=== PATIENT | female | born 1945 | race Hispanic/Latino ===

== ENCOUNTER 2017-11-17 14:12 | Inpatient (IN) | payer MEDICARE ==
[~2017-11-17] VITALS: Ht 154.9 cm; Wt 53.5 kg
[~2017-11-17 14:12] MED LIST: AMLODIPINE BESYL5 MG PO; ASPIRIN EC81 MG PO; CETIRIZINE HCL10 MG PO; FERROUS SULFAT325 MG PO; FOLIC ACID1 MG PO; LEVOTHYROXINE75 MCG PO; LOSARTAN POTAS100 MG PO; ULTRAM 50MG50 MG PO; ZOFRAN ODT4 MG SL
--- OUTSIDE RECORDS SUMMARY | 2017-11-17 14:14 | XMS REPORT ---
Author Author [facility] Address Unknown Phone Unavailable Care Team Providers Care Foreign Exchange Services Manager Name Role Phone HEATHER GONZALEZ Unavailable Unavailable Problems This patient has no known problems. Allergies, Adverse Reactions, Alerts This patient has no known allergies or adverse reactions. Medications This patient has no known medications. Results Test Description Test Time Test Comments Text Results Atomic Results Result Comments CT HIP RIGHT WO [place] [address] Patient Name: DOUGLAS GARRETT MR #: [id number] : 1945 Age/Sex: 72/F Req # : [id number] [facility] Physician: Ordered by: ALDEN LAM CLIP RIVETER Report #: [id number] Location: ER Room/Bed: Procedure: [id number] CT/CT HIP RIGHT WO Exam Date: 06/16/17 Exam Time: 1803 REPORT STATUS: Signed PROCEDURE: CT RIGHT HIP WITHOUT CONTRAST COMPARISON: X-ray done on the same date. INDICATIONS: FALL TECHNIQUE: Multidetector CT scanning of the right hip was performed without IV contrast. Coronal and sagittal multiplanar reformations were obtained. DLP: 191.15 mGy-cm FINDINGS: No acute fracture or dislocation of the right hip. Well-corticated ossified density adjacent to the greater trochanter is likely heterotopic ossification. Vascular calcifications. Partially imaged right SI joint vacuum disc phenomena. Small fat-containing right inguinal hernia. No right pelvic sidewall or inguinal lymphadenopathy. CONCLUSION: No acute fracture or dislocation of the right hip. Dictated by: Jag Greene M.D. on 06/16/2017 at 18:42 Electronically approved by: Jag Greene M.D. on 06/16/2017 at 18:42 Dictated By: JAG GREENE MD 41 Transcribed By: NELSON on 06/16/171841 COPY TO: ALDEN LAM CLIP RIVETER CT SHOULDER LEFT WO [place] [address] Patient Name: DOUGLAS GARRETT MR #: [id number] : 1945 Age/Sex: 72/F Req #: [id number] Adm Physician: Ordered by: ALDEN LAM CLIP RIVETER Report #: [id number] Location: ER Room/Bed: Procedure: [id number] CT/CT SHOULDER LEFT WO Exam Date: 06/16/17 Exam Time: 1803 REPORT STATUS: Signed PROCEDURE: CT LT SHOULDER WITHOUT CONTRAST COMPARISON: X-ray done on the same day. INDICATIONS: FALL TECHNIQUE: Multidetector CT scanning of the left shoulder was performed without IV contrast. Coronal and sagittal multiplanar reformations were obtained. DLP: 307.25 mGy-cm FINDINGS: No acute fracture or dislocation of the left shoulder. Posterior lateral humeral head deformity, likely representing Hill-Sachs deformity. Visualized left clavicle and left scapula are also unremarkable. Visualized left lung is unremarkable. No focal consolidation. CONCLUSION: No acute fracture or dislocation of the left shoulder. Dictated by: Jag Greene M.D. on 06/16/2017 at 18:48 Electronically approved by: Jag Greene M.D. on 06/16/2017 at 18:48 Dictated By: JAG GREENE MD 48 COPY TO: ALDEN LAM CLIP RIVETER CT CERVICAL SPINE WO [place] [address] Patient Name: DOUGLAS GARRETT MR #: [id number] : 1945 Age/Sex: 72/F Req #: [id number] Adm Physician: Ordered by: ALDEN LAM NP Report #: [id number] Location: ER Room/Bed: Procedure: [id number] CT/CT CERVICAL SPINE WO Exam Date: 06/16/17 Exam Time: 1515 REPORT STATUS: Signed EXAMINATION: Head and cervical spine CT without contrast. HISTORY: Status post fall 4 days ago, trauma in the back of the head, pain COMPARISON: None. TECHNIQUE: Multidetector axial images were obtained without contrast from the foramen magnum to the vertex and through the cervical spine. The images were reconstructed using brain and bone algorithms. Thin section brain images were reformatted into coronal and sagittal planes. HEAD CT FINDINGS: Skull: No lytic or blastic lesions. No fractures. Parenchyma: - Cortico-subcortical encephalomalacia in the left inferomedial occipital lobe ( lingual gyrus) with compensatory dilatation of the left occipital horn related to chronic infarct in the left DISTRIBUTION ENGINEERING TECHNOLOGIST distribution. -Smaller cortico- subcortical encephalomalacia in the left superior cerebellum, chronic infarct in the left superior cerebellar vascular distribution. -Severe confluent ventricular, jara radiata and centrum semiovale white matter hypodensities, most likely nonspecific diameter (ischemic changes. Small chronic lacunar infarct in the anterior limb of the right internal capsule.. - No mass, hemorrhage or CT evidence of acute vascular insult. Brain volume: Normal for age. Ventricles: No hydrocephalus or displacement. Arteries: No density suggestive of thrombus. Dural sinuses: No abnormal density. Extra-axial spaces: No abnormal density. Foramen magnum : No mass, Chiari malformation, or basilar invagination. Sella: No obvious mass. Paranasal/mastoid sinuses: Hypo pneumatization and sclerosis of the tip of the right mastoid air cells, likely sequela from remote inflammatory process. CERVICAL SPINE CT FINDINGS: Alignment: Normal alignment and lordosis. Soft tissues: Normal. Vertebrae: Normal height and density. No acute fracture, infection or neoplasm. Minimal likely chronic compression deformity of the C7 and T1 vertebral bodies. Intervertebral disk degenerative changes: C1-C2: Degenerative changes of the atlantodental joint and calcification of the atlantoaxial and craniocervical ligaments. C2-C3: Chondrocalcinosis of the intervertebral disc. Fusion of the posterior elements. No canal or foraminal stenosis. C3-C4: Advanced facet arthrosis with grade 1 anterolisthesis. Moderate bilateral foraminal stenoses. C4-C5: Symmetric disc bulge, prominent facet arthrosis. No significant stenosis. C5-C6: Disc osteophyte complex, bilateral uncovertebral facet arthrosis. Mild bilateral foraminal stenosis C6-C7: Disc osteophyte complex, bilateral uncovertebral and facet arthrosis. Mild to moderate foraminal stenosis. C7-T1: Prominent facet arthrosis with minimal anterolisthesis of mild foraminal narrowing. IMPRESSION: Head CT: 1. No acute traumatic intracranial abnormality, particularly no hemorrhage 2. Severe confluent white matter chronic microvascular ischemic changes. 3. 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 Cervical spine CT: 1. No acute fractures or dislocations. 2. Chronic degenerative changes as described. Note: Acute postraumatic spinal cord, vascular or ligamentous injuries cannot be excluded on the basis of the current examination. Signed by: Dr. Jeri Peguero M.D. on 06/16/2017 4 :02 PM Dictated By: JERI PEGUERO MD 1602 Transcribed By: RYNE on 06/16/17 160 COPY TO: ALDEN LAM NP CT BRAIN WO [place] [address] Patient Name: DOUGLAS GARRETT MR #: [id number] : 1945 Age/Sex: 72/F Req # : [id number] Adm Physician: Ordered by: ALDEN LAM NP Report #: [id number] Location: ER Room/Bed: Procedure: [id number] CT/CT BRAIN WO Exam Date: 06/16/17 Exam Time: 1515 REPORT STATUS: Signed EXAMINATION: Head and cervical spine CT without contrast. HISTORY: Status post fall 4 days ago, trauma in the back of the head, pain COMPARISON: None. TECHNIQUE: Multidetector axial images were obtained without contrast from the foramen magnum to the vertex and through the cervical spine. The images were reconstructed using brain and bone algorithms. Thin section brain images were reformatted into coronal and sagittal planes. HEAD CT FINDINGS: Skull: No lytic or blastic lesions. No fractures. Parenchyma: -Cortico-subcortical encephalomalacia in the left inferomedial occipital lobe (lingual gyrus) with compensatory dilatation of the left occipital horn related to chronic infarct in the left DISTRIBUTION ENGINEERING TECHNOLOGIST distribution. -Smaller cortico-subcortical encephalomalacia in the left superior cerebellum, chronic infarct in the left superior cerebellar vascular distribution. -Severe confluent ventricular, jara radiata and centrum semiovale white matter hypodensities, most likely nonspecific diameter (ischemic changes. Small chronic lacunar infarct in the anterior limb of the right internal capsule.. - No mass, hemorrhage or CT evidence of acute vascular insult. Brain volume: Normal for age. Ventricles: No hydrocephalus or displacement. Arteries: No density suggestive of thrombus. Dural sinuses: No abnormal density. Extra-axial spaces: No abnormal density. Foramen magnum: No mass, Chiari malformation, or basilar invagination. Sella: No obvious mass. Paranasal/mastoid sinuses: Hypo pneumatization and sclerosis of the tip of the right mastoid air cells, likely sequela from remote inflammatory process. CERVICAL SPINE CT FINDINGS: Alignment:Normal alignment and lordosis. Soft tissues: Normal. Vertebrae: Normal height and density. No acute fracture, infection or neoplasm. Minimal likely chronic compression deformity of the C7 and T1 vertebral bodies. Intervertebral disk degenerative changes: C1-C2: Degenerative changes of the atlantodental joint and calcification of the atlantoaxial and craniocervical ligaments. C2-C3: Chondrocalcinosis of the intervertebral disc. Fusion of the posterior elements. No canal or foraminal stenosis. C3-C4: Advanced facet arthrosis with grade 1 anterolisthesis. Moderate bilateral foraminal stenoses. C4-C5: Symmetric disc bulge, prominent facet arthrosis. No significant stenosis. C5-C6: Disc osteophyte complex, bilateral uncovertebral facet arthrosis. Mild bilateral foraminal stenosis C6-C7: Disc osteophyte complex, bilateral uncovertebral and facet arthrosis. Mild to moderate foraminal stenosis. C7-T1: Prominent facet arthrosis with minimal anterolisthesis of mild foraminal narrowing. IMPRESSION: Head CT: 1. No acute traumatic intracranial abnormality, particularly no hemorrhage 2. Severe confluent white matter chronic microvascular ischemic changes. 3. 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 Cervical spine CT: 1. No acute fractures or dislocations. 2. Chronic degenerative changes as described. Note: Acute postraumatic spinal cord, vascular or ligamentous injuries cannot be excluded on the basis of the current examination. Signed by: Dr. Jeri Peguero M.D. on 06/16/2017 4 :02 PM Dictated By: JERI PEGUERO MD 160 Transcribed By: RYNE on 06/16/17 160 COPY TO: ALDEN LAM CLIP RIVETER SHOULDER LEFT COMPLETE [place] [address] Patient Name: DOUGLAS GARRETT MR #: [id number] : 1945 Age/Sex: 72/F Req #: [id number] Adm Physician: Ordered by: ALDEN LAM CLIP RIVETER Report #: [id number] Location: ER Room/Bed: Procedure: [id number] DX/SHOULDER LEFT COMPLETE Exam Date: 06/16/17 Exam Time: 1420 REPORT STATUS: Signed SHOULDER LEFT COMPLETE - 2 views HISTORY: Pain COMPARISON: None available. FINDINGS: Bones: No acute displaced fracture. Osseous alignment is within normal limits. Adequate internal and external rotation. Joints: The joint spaces are well-maintained. Soft tissues: The soft tissues appear unremarkable. IMPRESSION: No acute fracture or dislocation of the left shoulder. Signed by: Dr. Jag Greene MD on 06/16/2017 2:51 PM Dictated By: JAG GREENE MD 50 Transcribed By: RYNE on 06/16/171450 COPY TO: ALDEN LAM CLIP RIVETER CHEST SINGLE (NOT PORTABLE) [place] [address] Patient Name: DOUGLAS GARRETT MR #: [id number] : 1945 Age/Sex: 72/F Req #: [id number] Adm Physician: Ordered by: ALDEN LAM CLIP RIVETER Report #: [id number] Location: ER Room/Bed: Procedure: [id number] DX/CHEST SINGLE (NOT PORTABLE) Exam Date: 06/16/17 Exam Time: 1420 REPORT STATUS: Signed EXAMINATION : CHEST SINGLE (NOT PORTABLE) INDICATION: Status post fall. COMPARISON: 04/23/2017 FINDINGS: AP view TUBES and LINES: None. LUNGS: Limited by shallow inspiration and mild rotation. Central vascular congestion, accentuated by low lung volumes. Mild right basilar subsegmental atelectasis. PLEURA: No significant pleural effusion or pneumothorax. HEART AND MEDIASTINUM: The cardiomediastinal silhouette is unremarkable. Aorta is calcified and tortuous. BONES AND SOFT TISSUES: No acute osseous lesion. Soft tissues are unremarkable. UPPER ABDOMEN: No free air under the diaphragm. IMPRESSION: Limited study due to shallow inspiration and mild rotation. Minimal right basilar subsegmental atelectasis. Signed by: Dr. Jag Greene MD on 06/16/2017 2:53 PM Dictated By: JAG GREENE MD 1451 Transcribed By: RYNE on 06/16/17 145 COPY TO: ALDEN LAM CLIP RIVETER HIP RIGHT ONE VW (+/- PELVIS) [place] [address] Patient Name: DOUGLAS GARRETT MR #: [id number] : 1945 Age/Sex: 72/F Req #: [id number] Adm Physician: Ordered by: HEATHER GONZALEZ MD Report #: [id number] Location: ER Room/Bed: Procedure: DX/HIP RIGHT ONE VW (+/- PELVIS) Exam Date: Exam Time: REPORT STATUS: Signed PROCEDURE: HIP RIGHT 2-3 VW (+/- PELVIS) COMPARISON: None. INDICATIONS: Not provided. FINDINGS: No evidence of acute displaced fracture or dislocation. There are degenerative changes of bilateral hips. Well- corticated ossified density adjacent to the right greater trochanter, less likely to represent an avulsed fracture fragment and may represent heterotopic ossification. Vascular calcifications. CONCLUSION: No acute fracture or dislocation of the right hip. Degenerative changes. Dictated by: Jag Greene M.D. on 06/16/2017 at 18:24 Electronically approved by: Jag Greene M.D. on 06/16/2017 at 18:24 Dictated By: JAG GREENE MD 23 Transcribed By: NELSON on 06/16/171823 COPY TO: HEATHER GONZALEZ MD HIP RIGHT 2-3 VW (+/- PELVIS) [place] [address] Patient Name: DOUGLAS GARRETT MR #: [id number] : 1945 Age/Sex: 72/F Req #: [id number] Adm Physician: Ordered by: HEATHER GONZALEZ MD Report #: [id number] Location: ER Room/Bed: Procedure: DX/HIP RIGHT 2-3 VW (+/- PELVIS) Exam Date: Exam Time: REPORT STATUS: Signed PROCEDURE: HIP RIGHT 2-3 VW (+/- PELVIS) COMPARISON: None. INDICATIONS: Not provided. FINDINGS: No evidence of acute displaced fracture or dislocation. There are degenerative changes of bilateral hips. Well- corticated ossified density adjacent to the right greater trochanter, less likely to represent an avulsed fracture fragment and may represent heterotopic ossification. Vascular calcifications. CONCLUSION: No acute fracture or dislocation of the right hip. Degenerative changes. Dictated by: Jag Greene M.D. on 06/16/2017 at 18:24 Electronically approved by: Jag Greene M.D. on 06/16/2017 at 18:24 Dictated By: JAG GREENE MD 23 Transcribed By: NELSON on 06/16/171823 COPY TO: HEATHER GONZALEZ MD
[2017-11-17] MEDS ORDERED: SODIUM CHLORIDE 0.9% 500ML 500 ML IV STA (15:41)
[2017-11-17] MEDS ORDERED: MORPHINE SULFATE 4 MG/ML SYR IV STA (15:41)
[2017-11-17] MEDS ORDERED: ONDANSETRON HCL INJ 2 MG/ML VIAL IV STA (15:41)
[2017-11-17] MEDS ORDERED: DIATRIZOATE MEGL/DIATRIZOA SOD 30 ML BTL PO ONE (15:55)
[2017-11-17] MEDS ORDERED: MORPHINE SULFATE 2 MG/ML SYR IV ONE (16:00)
--- NOTE | 2017-11-17 16:21 | Diagnostic Imaging Report ---
PROCEDURE: CHEST SINGLE (PORTABLE) COMPARISON: 06/16/17 INDICATIONS: DIARRHEA, ABDOMINAL PAIN FINDINGS: LUNGS: Trace amount of discoid atelectasis in the lung bases stable. No new findings in either lung. PLEURA: No effusions or pneumothorax. Eventration of the right diaphragm is stable. HEART \T\ MEDIASTINUM: The heart is within normal size-limits. Aortic ectasia and calcifications are stable. BONES \T\ SOFT TISSUES: No acute findings. CONCLUSION: No acute cardiopulmonary process. Dictated by: Yanira Figueredo M.D. on 11/17/2017 at 16:21 Electronically approved by: Yanira Figueredo M.D. on 11/17/2017 at 16:21
[2017-11-17 17:41] LABS: BASOPHILS % 0.4 % (0.0-1.0); EOSINOPHILS % 0.7 % (0.0-6.0); HEMATOCRIT 35.6 % (34.2-44.1); HEMOGLOBIN 11.6 g/dL (12.0-16.0); LYMPHOCYTES # (AUTO) 0.8 (1.0-3.2); LYMPHOCYTES % 15.4 % (18.0-39.1); MEAN CORPUSCULAR HEMOGLOBIN 29.7 pg (28-32); MEAN CORPUSCULAR HGB CONC 32.6 g/dL (31-35); MONOCYTES # (AUTO) 0.3 (0.2-0.8); MONOCYTES % 5.9 % (4.4-11.3); NEUTROPHILS # (AUTO) 4.2 (2.1-6.9); NEUTROPHILS % 77.2 % (38.7-80.0); PLATELET COUNT 126 x10e3/uL (140-360); RED BLOOD COUNT 3.91 x10e6/uL (3.6-5.1); RED CELL DISTRIBUTION WIDTH 15.7 % (11.7-14.4)
[2017-11-17 17:50] LABS: INR 1.07; PARTIAL THROMBOPLASTIN TIME 32.5 seconds (23.8-35.5); PROTHROMBIN TIME 13.1 seconds (11.9-14.5)
[2017-11-17 17:58] LABS: ALBUMIN 3.9 g/dL (3.5-5.0); ALBUMIN/GLOBULIN RATIO 0.9 (0.8-2.0); ANION GAP 16.5 mmol/L (8-16); CALCIUM 9.4 mg/dL (8.4-10.2); CREATININE, SERUM 1.13 mg/dL (0.57-1.11); POTASSIUM 3.5 mmol/L (3.5-5.1)
[2017-11-17] MEDS ORDERED: ACETAMINOPHEN 1000 MG/100 ML IV STA (18:03)
[2017-11-17 18:04] LABS: CREATINE KINASE MB 0.5 ng/mL (0-5.0)
--- NOTE | 2017-11-17 19:24 | Diagnostic Imaging Report ---
CT Abdomen And Pelvis with Intravenous Contrast INDICATION: Gallbladder mass, evaluate for small bowel obstruction, diverticulitis TECHNIQUE: Thin collimation axial images obtained from the diaphragm to the level of the pubic symphysis following the uneventful administration of 80 cc of low osmolar, nonionic intravenous contrast. RADIATION DOSE: Total DLP: 322.9 mGy*cm Estimated effective dose: (DLP x 0.015 x size factor) mSv CTDIvol has been reviewed. It is below the limits set by the Radiation Protocol Committee (RPC). COMPARISON: CT abdomen/pelvis 04/24/2017. MRCP 04/20/2017 ABDOMEN FINDINGS: Lung Bases: Stable eventration of the right diaphragm with atelectasis of the overlying lung. No pulmonary mass. Visualized portion of the mediastinum demonstrates atherosclerosis and calcifications of the aortic and mitral valves. Liver: Geographic hypoattenuation of the inferior aspect of the liver at the darcy hepatis without discrete mass. Portal vein and hepatic veins are widely patent. Gallbladder: Absent. Common bile duct measures 9 mm in diameter and tapers as it approaches the ampulla. There is enhancement of the mucosa of the common hepatic duct. This is similar to MRI. No intraluminal filling defect to suggest choledocholithiasis. Pancreas: Normal attenuation without mass or ductal dilatation. Spleen: Normal in size. No evidence of mass.. Adrenal Glands: No evidence for mass. Kidneys: Right: Normal enhancement. There are several subcentimeter cysts. No enhancing mass. No hydronephrosis. Left: Normal enhancement. No cortical mass. No hydronephrosis. Lymph Nodes: No lymphadenopathy. Aorta: Extensive calcifications. No aneurysmal dilatation. There are heavy calcifications of the renal artery origins. There is soft tissue edema in the darcy hepatis without discrete fluid collection. There is a trace amount of fluid inferior to the right lobe of the liver. PELVIS FINDINGS: Bowel: Small Bowel: Enteric contrast present throughout. No small bowel dilatation or mural thickening. No fluid in the small bowel mesentery. Large Bowel: Enteric contrast is present throughout. There is a 3 cm segment of circumferential luminal narrowing of the proximal sigmoid colon. No diverticula are appreciated.. Appendix: Normal appendix. Bladder: Under distended. No ureteral dilatation. The uterus is present with calcifications of the parametrial vessels. A calcification in the left ovary is stable. Lymph nodes: No enlarged mesenteric, pelvic, or inguinal lymph nodes. Peritoneal nodule in the right hemiabdomen measures 9 x 7 mm (by MRCP, 6 mm. No new peritoneal nodules have developed. Bones: Mild degenerative changes of the spine are stable. There is trace anterolisthesis of L4 on L5 without pars defect. No focal osseous lesions. Soft tissues: Left elbow hernia containing colon is no longer visualized. There are bilateral fat-containing indirect inguinal hernias. There are no bowel containing hernias. IMPRESSION: 1. 3 cm length of circumferential luminal narrowing of the proximal sigmoid colon. The differential is neoplastic process or spasm. Recommend further evaluation with colonoscopy. No large bowel inflammation to suggest diverticulitis. 2. No small bowel obstruction. 3. Geographic hypoattenuation of the liver and mild enhancement of the mucosa of the common hepatic duct. Please correlate for signs/symptoms of cholangitis and pancreatitis. Hypoattenuation of the liver may be secondary to fat deposition. Please correlate for history of any chemoradiation. 4. Enlarging but still nonspecific peritoneal nodule. Signed by: Dr. Yanira Figueredo MD on 11/17/2017 7:20 PM
[2017-11-17 20:38] LABS: BILIRUBIN,URINE NEGATIVE (NEGATIVE); COLOR,URINE YELLOW (YELLOW); KETONES,URINE NEGATIVE (NEGATIVE); LEUKOCYTE ESTERASE ,URINE TRACE (NEGATIVE); NITRITE,URINE NEGATIVE (NEGATIVE); URINE UROBILINOGEN 0.2 mg/dL (0.2 - 1)
[2017-11-17 20:42] LABS: CLARITY,URINE SL CLOUDY (CLEAR); PROTEIN,URINE DIPSTICK 2+ (NEGATIVE)
[2017-11-17] MEDS ORDERED: IOPAMIDOL 370 MG/ML 200 ML INFUS..BTL INJ ONE (20:42)
[2017-11-17] MEDS ORDERED: SODIUM CHLORIDE 0.9% 50ML 50 ML ONE (20:42)
[2017-11-17 20:47] LABS: BACTERIA,URINE FEW /HPF; EPITHELIAL CELLS,URINE FEW /LPF; MUCUS,URINE FEW (RARE)
[2017-11-17] MEDS ORDERED: SODIUM CHLORIDE 0.9% 500ML 500 ML ONE (20:48)
[2017-11-17] MEDS ORDERED: METRONIDAZOLE 500MG/NS 100ML 100 ML IV SCH (21:00)
[2017-11-17] MEDS: INSULIN REGULAR, HUMAN 100 UNIT/1 ML 3ML VIAL SQ SCH (21:00)
[2017-11-17] MEDS ORDERED: DEXTROSE 50% SYRINGE 50 ML IV PRN (21:00)
[2017-11-17] MEDS: MORPHINE SULFATE 2 MG/ML SYR IV PRN (21:41)
[2017-11-17] MEDS: ONDANSETRON HCL INJ 2 MG/ML VIAL IV PRN (21:41)
[2017-11-17 22:24] VITALS: BP 160/68
[2017-11-17 22:28] VITALS: BP 160/68
[2017-11-17] MEDS: LEVOFLOXACIN 500MG/D5W 100ML IV SCH (22:43)
[2017-11-17] MEDS: SODIUM CHLORIDE 0.9% 1000ML 1,000 ML IV SCH (22:43)
[2017-11-18] VITALS (9 sets, daily range): BP systolic 128–166; BP diastolic 62–90
[2017-11-18] MEDS: ONDANSETRON HCL INJ 2 MG/ML VIAL IV PRN (02:48)
[2017-11-18] MEDS: METRONIDAZOLE 500MG/NS 100ML 100 ML IV SCH ×4 (04:01→20:52)
[2017-11-18] MEDS: SODIUM CHLORIDE 0.9% 1000ML 1,000 ML IV SCH ×2 (04:56→12:59)
[2017-11-18 07:11] LABS: BASOPHILS % 0.3 % (0.0-1.0); EOSINOPHILS % 0.3 % (0.0-6.0); HEMATOCRIT 25.8 % (34.2-44.1); LYMPHOCYTES # (AUTO) 0.5 (1.0-3.2); LYMPHOCYTES % 14.5 % (18.0-39.1); MEAN CORPUSCULAR HEMOGLOBIN 29.7 pg (28-32); MEAN CORPUSCULAR HGB CONC 32.6 g/dL (31-35); MEAN CORPUSCULAR VOLUME 91.2 fL (81-99); MONOCYTES # (AUTO) 0.3 (0.2-0.8); MONOCYTES % 7.9 % (4.4-11.3); NEUTROPHILS # (AUTO) 2.5 (2.1-6.9); NEUTROPHILS % 76.7 % (38.7-80.0); RED BLOOD COUNT 2.83 x10e6/uL (3.6-5.1); RED CELL DISTRIBUTION WIDTH 15.3 % (11.7-14.4)
[2017-11-18 07:23] LABS: HEMOGLOBIN 8.4 g/dL (12.0-16.0); PLATELET COUNT 92 x10e3/uL (140-360)
[2017-11-18] MEDS: INSULIN REGULAR, HUMAN 100 UNIT/1 ML 3ML VIAL SQ SCH ×4 (07:30→20:42)
[2017-11-18 07:47] LABS: ALBUMIN 2.8 g/dL (3.5-5.0); ALBUMIN/GLOBULIN RATIO 0.9 (0.8-2.0); ANION GAP 12.8 mmol/L (8-16); CALCIUM 8.1 mg/dL (8.4-10.2); CREATININE, SERUM 1.36 mg/dL (0.57-1.11); POTASSIUM 3.8 mmol/L (3.5-5.1)
[2017-11-18 09:17] LABS: RBC MORPHOLOGY COMMENT NORMAL
[2017-11-18 09:18] LABS: PLATELET ESTIMATE ADEQUATE; PLATELET MORPHOLOGY COMMENT NORMAL
[2017-11-18] MEDS ORDERED: PEG (High)/E-LYTE SOLN 4,000 ML BTL PO NR (17:00)
[2017-11-18] MEDS ORDERED: ONDANSETRON HCL 4 MG ORAL DISINTEGRATING TAB SL PRN (17:45)
--- NOTE | 2017-11-18 17:59 | Consultation ---
DATE OF CONSULTATION: GASTROENTEROLOGY CONSULTATION Reason for consult: Abdominal pain and diarrhea, rectal pain and streaks of blood in stool for 2 weeks HISTORY OF PRESENT ILLNESS/CHIEF COMPLAINT: 72 years old very pleasant female got admitted through ER with 2 weeks history of bloody diarrhea and rectal pain. Stool often mixed with mucus as well. Patient has had a previous history of colonoscopy with Dr. Charlton about a year ago. That showed diverticulosis and mulitple polyps were removed. Patient's hemoglobin has dropped from an 11.6 to an 8.4 in the past few days. No hx of recent travel, drinking , eating any contaminated food. No recent exposure to antibiotics. No significant hematochezia witnessed while being in Hospital. CT was done and shows circumferential luminal narrowing of the colon, spasm versus neoplastic malignancy. REVIEW OF SYSTEMS: 12 point systems reviewed, symptoms limited to GI system at this time. PAST MEDICAL HISTORY: Patient has hypertension, diabetes mellitus, CHF, asthma , lupus, arthritis, and iron deficiency anemia. PAST SURGERIES: Include cholecystectomy and also hysterectomy as well as knee surgery. SOCIAL HISTORY: She is a former smoker, no alcohol use or drug use. FAMILY HISTORY: Has a history of hypertension in the family. PHYSICAL EXAMINATION APPEARANCE: Alert, oriented x3. Patient is in mild distress. EYES: Pupils equal, round and reactive to light. No conjunctival findings, scleral icterus or pale conjunctivae. ENT: Ears normal, nose normal, no nasal discharge. NECK: Normal inspection. Supple. No JVD, lymphadenopathy. HEART: Normal heart rate and rhythm. Pulses normal, rate normal, rhythm normal. RESPIRATORY: Chest nontender. No rales, rhonchi or wheezes. ABDOMEN: Soft. Tenderness in the left lower quadrant and lower abdomen. No guarding or rebound tenderness. Bowel sounds normal. No mass. BACK: No CVA tenderness. SKIN: No rash. Normal skin turgor. Normal skin color. No cyanosis. EXTREMITIES: Normal range of motion. No calf tenderness. No edema. No cyanosis. NEUROLOGIC: Alert and oriented x3. No change in mental status. No cranial nerve deficit. No weakness. LABS: Patient has a drop in hemoglobin from 11.6 to 8.4. She currently has a CMP with creatinine of 1.13, and CT is positive for 3-cm length of proximal sigmoid colon with circumferential thickening. ASSESSMENT 1. Anemia, rule out gastrointestinal bleed. 2. Abdominal pain left lower quadrant. 3. Bloody diarrhea with mucus. 4. Diverticulosis and polyps on previous colonoscopy. 5. Nausea, vomiting. PLAN 1. EGD and colonoscopy tomorrow in the morning. Bowel prep tonight. 2. Continue current care. 3. Monitor vital signs. 4. Monitor H\T\H, transfuse if less than 7. Thank you for consulting us. We will follow. Dictated by: Sofi Reilly PA-C Job#: [id number] EV MTDD
--- NOTE | 2017-11-18 18:11 | History and Physical ---
PRIMARY CARE PHYSICIAN: Dr. Jayme Tinajero. GENETIC ENGINEER: Dr. Franck Jacob. CHIEF COMPLAINT: Hematochezia/rectal bleed. Abdominal pain with sigmoid colon infection. Nausea and vomiting, dehydration, and acute blood loss anemia. HISTORY OF PRESENT ILLNESS: A 72-year-old female with an acute abdominal pain left lower quadrant, abdominal pain associated with fever, diarrhea, and also with hematochezia. Patient has rectal bleed. CT scan showed 3-cm length of circumferential luminal narrowing of the proximal sigmoid colon. The patient is pending for endoscopy. In the meantime, the patient is placed on IV antibiotics. The patient is otherwise stable. Her hemoglobin dropped down to 8.4. The patient is stable at this time. PAST MEDICAL HISTORY: Hypertension, diabetes type 2, allergic rhinitis, hypothyroidism, osteoarthritis. PAST SURGICAL HISTORY: Cholecystectomy. SOCIAL HISTORY: Patient does not smoke or use alcohol. No recreational drug use. ALLERGIES: NO KNOWN ALLERGY. HOME MEDICATIONS: Norvasc, aspirin, Zyrtec, ferrous sulfate, folic acid, levothyroxine, losartan, Zofran and tramadol. REVIEW OF SYSTEMS: Hematochezia. Rectal bleed as above. Abdominal pain. Nausea and vomiting and fever. PHYSICAL EXAMINATION: VITAL SIGNS: T-max was 100.5. Blood pressure 190/101. Pulse rate is 101. Respirations 20. GENERAL: Patient is not in acute distress. She is awake. HEENT: Normocephalic, atraumatic, anicteric. NECK: Supple grossly. PULMONARY: Diminished breath sounds. CARDIOVASCULAR: Tachycardia. ABDOMEN: Soft. Tenderness lower quadrant area without any rebound or guarding. EXTREMITIES: No gross cyanosis or edema. NEUROLOGIC: No focal deficit. LABORATORY: WBC is 5.4. Hemoglobin 11.6 down to 8.4. Hematocrit 35.6 down to 25.8. Platelet is 126 down to 92. Coagulation unremarkable. Chemistry: Sodium 138, potassium 3.5, chloride 101, bicarb 24, BUN is 21, creatinine 1.1, glucose is 115. IMAGING: CT scan of abdomen and pelvis showed that the patient has a 3-cm length of circumferential luminal narrowing of the proximal sigmoid colon. Differential diagnosis including neoplastic versus abscess. IMPRESSION: 1. Sigmoid colon colitis versus abscess versus stricture versus mass. 2. Hematochezia. 3. Acute blood loss anemia. 4. Dehydration. PLAN: Continue with IV fluid. IV antibiotics. Prep the patient for endoscopy. Insulin sliding-scale coverage. Will monitor the patient closely and adjust her medications. Job#: [id number] EV cc:JAYME TINAJERO MD
[2017-11-18] MEDS: LEVOFLOXACIN 500MG/D5W 100ML IV SCH (19:42)
[2017-11-19] VITALS (7 sets, daily range): BP systolic 102–174; BP diastolic 58–74
[2017-11-19] MEDS: SODIUM CHLORIDE 0.9% 1000ML 1,000 ML IV SCH (04:05)
[2017-11-19] MEDS: METRONIDAZOLE 500MG/NS 100ML 100 ML IV SCH ×3 (04:05→22:25)
[2017-11-19 06:05] LABS: BASOPHILS % 0.5 % (0.0-1.0); EOSINOPHILS % 1.4 % (0.0-6.0); HEMATOCRIT 26.2 % (34.2-44.1); HEMOGLOBIN 8.5 g/dL (12.0-16.0); LYMPHOCYTES # (AUTO) 0.5 (1.0-3.2); LYMPHOCYTES % 22.2 % (18.0-39.1); MEAN CORPUSCULAR HEMOGLOBIN 29.4 pg (28-32); MEAN CORPUSCULAR HGB CONC 32.4 g/dL (31-35); MEAN CORPUSCULAR VOLUME 90.7 fL (81-99); MONOCYTES # (AUTO) 0.2 (0.2-0.8); MONOCYTES % 10.4 % (4.4-11.3); NEUTROPHILS # (AUTO) 1.4 (2.1-6.9); PLATELET COUNT 93 x10e3/uL (140-360); RED BLOOD COUNT 2.89 x10e6/uL (3.6-5.1); RED CELL DISTRIBUTION WIDTH 15.5 % (11.7-14.4)
[2017-11-19 06:34] LABS: ANION GAP 12.4 mmol/L (8-16); CALCIUM 8.2 mg/dL (8.4-10.2); CREATININE, SERUM 1.04 mg/dL (0.57-1.11); POTASSIUM 3.4 mmol/L (3.5-5.1)
[2017-11-19] MEDS: INSULIN REGULAR, HUMAN 100 UNIT/1 ML 3ML VIAL SQ SCH ×4 (07:30→21:00)
[2017-11-19 09:13] LABS: WBC,FECAL (FECAL LACTOFERRIN) POSITIVE (NEGATIVE)
[2017-11-19] MEDS: AMLODIPINE BESYLATE 5 MG TAB PO SCH (11:11)
[2017-11-19] MEDS: LEVOTHYROXINE SODIUM 75 MCG TAB PO SCH (11:11)
[2017-11-19] MEDS: FOLIC ACID 1 MG TAB PO SCH (11:11)
[2017-11-19] MEDS: LOSARTAN POTASSIUM 100 MG TAB PO SCH (11:11)
[2017-11-19] MEDS ORDERED: ONDANSETRON HCL 4 MG ORAL DISINTEGRATING TAB PO PRN (11:15)
[2017-11-19 13:04] LABS: C DIFFICILE TOXIN A&B AMP PROB NEGATIVE (NEGATIVE)
[2017-11-19] MEDS: SOD CHL 0.45%/POT CHL 20MEQ 1,000 ML IV SCH (13:54)
[2017-11-19] MEDS ORDERED: MIDAZOLAM HCL 2 MG/2 ML VIAL ONE (14:50)
[2017-11-19] MEDS ORDERED: FENTANYL CITRATE/PF 100MCG/2 ML INJ ONE (14:50)
[2017-11-19] MEDS: LEVOFLOXACIN 500MG/D5W 100ML IV SCH (20:55)
[2017-11-20] VITALS: BP 140/61
[2017-11-20] MEDS: MORPHINE SULFATE 2 MG/ML SYR IV PRN
[2017-11-20 04:00] VITALS: BP 163/74
[2017-11-20] MEDS: SOD CHL 0.45%/POT CHL 20MEQ 1,000 ML IV SCH (05:26)
[2017-11-20 06:08] LABS: BASOPHILS % 0.2 % (0.0-1.0); EOSINOPHILS % 0.5 % (0.0-6.0); HEMOGLOBIN 8.8 g/dL (12.0-16.0); LYMPHOCYTES # (AUTO) 0.5 (1.0-3.2); LYMPHOCYTES % 11.7 % (18.0-39.1); MEAN CORPUSCULAR HEMOGLOBIN 29.4 pg (28-32); MEAN CORPUSCULAR HGB CONC 32.6 g/dL (31-35); MEAN CORPUSCULAR VOLUME 90.3 fL (81-99); MONOCYTES # (AUTO) 0.4 (0.2-0.8); NEUTROPHILS # (AUTO) 3.2 (2.1-6.9); NEUTROPHILS % 76.9 % (38.7-80.0); PLATELET COUNT 69 x10e3/uL (140-360); RED BLOOD COUNT 2.99 x10e6/uL (3.6-5.1); RED CELL DISTRIBUTION WIDTH 15.4 % (11.7-14.4)
[2017-11-20] MEDS: METRONIDAZOLE 500MG/NS 100ML 100 ML IV SCH ×2 (06:22→15:17)
[2017-11-20 06:35] LABS: ANION GAP 13.7 mmol/L (8-16); BLOOD UREA NITROGEN 8 mg/dL (7-26); BUN/CREATININE RATIO 10 (6-25); CARBON DIOXIDE 21 mmol/L (22-29); CHLORIDE 107 mmol/L (98-107); CREATININE, SERUM 0.81 mg/dL (0.57-1.11); EST GLOMERULAR FILTRATION RATE > 60 ML/MIN (60-); GLUCOSE 98 mg/dL (74-118); POTASSIUM 3.7 mmol/L (3.5-5.1); SODIUM 138 mmol/L (136-145)
[2017-11-20] MEDS: INSULIN REGULAR, HUMAN 100 UNIT/1 ML 3ML VIAL SQ SCH ×4 (07:30→20:15)
[2017-11-20 08:00] VITALS: BP 157/70
[2017-11-20] MEDS: FOLIC ACID 1 MG TAB PO SCH (08:18)
[2017-11-20] MEDS: AMLODIPINE BESYLATE 5 MG TAB PO SCH (08:18)
[2017-11-20] MEDS: LOSARTAN POTASSIUM 100 MG TAB PO SCH (08:18)
[2017-11-20] MEDS: LEVOTHYROXINE SODIUM 75 MCG TAB PO SCH (11:30)
[2017-11-20 12:00] VITALS: BP 155/67
[2017-11-20 16:00] VITALS: BP 145/66
[2017-11-20] MEDS: LIDOCAINE 5% PATCH TP SCH (17:31)
[2017-11-20 20:00] VITALS: BP 134/63
--- NOTE | 2017-11-20 22:04 | Progress Note ---
DATE: November 20, 2017 SUBJECTIVE: Patient reports no abdominal pain. No bowel movement today. Nausea, vomiting, diarrhea has resolved. However, she is complaining of right middle back pain. REVIEW OF SYSTEMS: GENERAL: No fever or chills. CVS: No chest pain, palpitation. RESPIRATORY: No cough or expectoration. MEDICATIONS: 1. Lidocaine dermal patch. 2. Metronidazole 100 mg IV q.8h. 3. Levothyroxine 75 mcg daily. 4. Losartan 100 mg daily. 5. Folic acid 1 mg daily. 6. Amlodipine 5 mg daily. 7. Morphine sulfate 4 mg IV q.4h. as needed. 8. Levofloxacin 500 mg IV daily. 9. Zofran 4 mg IV q.4h. as needed. 10. Insulin regular per sliding scale. 11. Tramadol 50 mg q.6h. as needed. PHYSICAL EXAMINATION: VITAL SIGNS: Temperature 98.5, pulse 110, respiration 18, blood pressure 145/66, oxygen saturation 98% on room air. GENERAL: Not in any acute distress. HEENT: Moist mucous membranes. Anicteric sclerae. NECK: No neck or axillary adenopathy. CVS: S1 and S2 regular. LUNGS: Bilaterally grossly clear. ABDOMEN: Soft, nondistended, nontender. No palpable mass or hernia. Positive bowel sounds. EXTREMITIES: Warm. No leg edema. Patient has had upper endoscopy as well as colonoscopy yesterday. Colonoscopy did show some inflammation in the sigmoid colon, this is likely due to infectious versus ischemic colitis. Biopsies were taken. Stools were aspirated. Stool C. diff is negative. Stool culture is in progress. IMPRESSION: Right middle back pain, likely musculoskeletal. Patient has already been started on Lidoderm patch. PLAN: From GI standpoint, hemoglobin is stable. Continue renal diabetic diet. Change IV to oral antibiotic for another 2 to 3 days (total 5 to 7 days). Serial abdominal exam. Monitor her clinically. Patient can be discharged home from GI standpoint. Will follow sigmoid colon biopsy results. Job#: [id number] DR HARRIS
[2017-11-21] MEDS: TRAMADOL HCL 50 MG TAB PO PRN ×2 (03:34→08:39)
[2017-11-21] MEDS: LOSARTAN POTASSIUM 100 MG TAB PO SCH ×2 (04:34→09:00)
[2017-11-21 06:20] VITALS: BP 159/67
[2017-11-21] MEDS: INSULIN REGULAR, HUMAN 100 UNIT/1 ML 3ML VIAL SQ SCH ×4 (07:30→21:00)
[2017-11-21] MEDS: LEVOTHYROXINE SODIUM 75 MCG TAB PO SCH (07:30)
[2017-11-21 08:00] VITALS: BP 180/72
[2017-11-21] MEDS: AMLODIPINE BESYLATE 5 MG TAB PO SCH (09:00)
[2017-11-21] MEDS: FOLIC ACID 1 MG TAB PO SCH (09:00)
[2017-11-21] MEDS: LIDOCAINE 5% PATCH TP SCH (10:44)
[2017-11-21 12:00] VITALS: BP 159/64
[2017-11-21] MEDS ORDERED: AMLODIPINE BESYLATE 5 MG TAB PO NR (14:45)
[2017-11-21] MEDS: METRONIDAZOLE 500 MG TAB PO SCH ×2 (15:08→21:27)
[2017-11-21 16:00] VITALS: BP 112/54
[2017-11-21 20:00] VITALS: BP 123/61
[2017-11-22] VITALS: BP 116/64
[2017-11-22 04:00] VITALS: BP 117/56
[2017-11-22] MEDS: METRONIDAZOLE 500 MG TAB PO SCH ×2 (05:50→14:00)
[2017-11-22] MEDS: AMLODIPINE BESYLATE 5 MG TAB PO SCH ×2 (05:50→09:00)
[2017-11-22 06:11] LABS: BASOPHILS % 0.5 % (0.0-1.0); EOSINOPHILS % 0.7 % (0.0-6.0); HEMATOCRIT 26.8 % (34.2-44.1); HEMOGLOBIN 8.8 g/dL (12.0-16.0); LYMPHOCYTES # (AUTO) 0.5 (1.0-3.2); LYMPHOCYTES % 12.1 % (18.0-39.1); MEAN CORPUSCULAR HEMOGLOBIN 29.7 pg (28-32); MEAN CORPUSCULAR HGB CONC 32.8 g/dL (31-35); MEAN CORPUSCULAR VOLUME 90.5 fL (81-99); MONOCYTES # (AUTO) 0.5 (0.2-0.8); MONOCYTES % 11.9 % (4.4-11.3); NEUTROPHILS # (AUTO) 3.2 (2.1-6.9); NEUTROPHILS % 73.9 % (38.7-80.0); PLATELET COUNT 67 x10e3/uL (140-360); RED BLOOD COUNT 2.96 x10e6/uL (3.6-5.1); RED CELL DISTRIBUTION WIDTH 15.3 % (11.7-14.4)
[2017-11-22 06:45] LABS: ALBUMIN 2.5 g/dL (3.5-5.0); ALBUMIN/GLOBULIN RATIO 0.9 (0.8-2.0); ANION GAP 9.5 mmol/L (8-16); POTASSIUM 3.5 mmol/L (3.5-5.1)
[2017-11-22] MEDS: LEVOTHYROXINE SODIUM 75 MCG TAB PO SCH (07:30)
[2017-11-22] MEDS: INSULIN REGULAR, HUMAN 100 UNIT/1 ML 3ML VIAL SQ SCH ×3 (07:30→15:48)
[2017-11-22 08:00] VITALS: BP 139/61
[2017-11-22] MEDS: LOSARTAN POTASSIUM 100 MG TAB PO SCH (09:00)
[2017-11-22] MEDS: FOLIC ACID 1 MG TAB PO SCH (09:00)
--- NOTE | 2017-11-22 09:56 | Progress Note ---
DATE: November 21, 2017 SUBJECTIVE: The patient reports no abdominal pain. Right middle back pain has also improved. She is eating and drinking fine. Regular bowel movements. No more diarrhea. Stool is soft and brown. REVIEW OF SYSTEMS: GENERAL: No fever or chills. CVS: No chest pain or palpitations. RESPIRATORY: No cough or expectoration. MEDICATIONS: Metronidazole 500 mg p.o. q.8 h., Lidocaine dermal patch, losartan 100 mg p.o. daily, folic acid 1 mg daily, levothyroxine 75 mcg daily, tramadol 50 mg q.6 h. p.r.n., regular insulin as per sliding scale, amlodipine 5 mg daily, ondansetron 4 mg q.4 h. p.r.n. IMPRESSION: 1. Right middle back pain likely musculoskeletal . 2. Nausea and vomiting and lower abdominal cramping and diarrhea has resolved. Colonoscopy showed some inflammation in the sigmoid colon, biopsies are pending. This is likely due to ischemic colitis. Stool has been negative. The patient is being treated empirically with antibiotics. PLAN: Stool is no longer having any blood. Hemoglobin remains stable. Will continue the present management. May discontinue the antibiotics prior to discharge. The patient can go home tomorrow from GI standpoint. Job#: [id number]
[2017-11-22 12:01] VITALS: BP 100/58
[2017-11-22] MEDS ORDERED: TYLENOL WITH C1 EACH PO (14:52)
[2017-11-22] MEDS ORDERED: LEVAQUIN250 MG PO (14:53)
[2017-11-22] MEDS ORDERED: FLAGYL500 MG PO (14:53)
[2017-11-22 15:44] VITALS: BP 115/57
== END 2017-11-22 15:56 | disposition home or self-care (01) | DRG 394 ==
LOC: ER 14:12 → ERHOLD 21:06 → MED/SURG2 21:34
PROVIDERS: ADMIT Internal Medicine; ATTEND Internal Medicine
PROC: 0DBN8ZX Excision of Sigmoid Colon, Via Natural or Artificial Opening Endoscopic, Diagnostic (ICD-10-PCS; principal; 2017-11-19 07:49)
PROC: 0DB78ZX Excision of Stomach, Pylorus, Via Natural or Artificial Opening Endoscopic, Diagnostic (ICD-10-PCS; 2017-11-19 07:49)
DX: K55.9 Vascular disorder of intestine, unspecified (principal); K57.32 Diverticulitis of large intestine without perforation or abscess without bleeding; M32.9 Systemic lupus erythematosus, unspecified; I11.0 Hypertensive heart disease with heart failure; I50.9 Heart failure, unspecified; K22.2 Esophageal obstruction; D62 Acute posthemorrhagic anemia; K64.8 Other hemorrhoids; E86.0 Dehydration; E11.9 Type 2 diabetes mellitus without complications; J45.909 Unspecified asthma, uncomplicated; K44.9 Diaphragmatic hernia without obstruction or gangrene; K29.70 Gastritis, unspecified, without bleeding; E03.9 Hypothyroidism, unspecified; M54.9 Dorsalgia, unspecified; Z85.9 Personal history of malignant neoplasm, unspecified; Z79.82 Long term (current) use of aspirin
CPT/HCPCS: 36415; 43239; 45380; 71045; 74177; 80048; 80053; 81001; 82550; 82553; 82948; 83036; 83630; 83690; 84484; 85025; 85610; 85730; 86850; 86900; 87045; 87177; 87328; 87493; 88305; 88312; 93005; 99284; J1956; J2250; J2270; J2405; J7030; J7040; Q9967

== ENCOUNTER 2018-05-24 20:25 | Inpatient (IN) | payer MEDICARE ==
[~2018-05-24] VITALS: Ht 154.9 cm; Wt 51.7 kg
[~2018-05-24 20:25] MED LIST changes: +FLAGYL500 MG PO; +LEVAQUIN250 MG PO; +TYLENOL WITH C1 EACH PO
[2018-05-24] MEDS ORDERED: ONDANSETRON HCL INJ 2 MG/ML VIAL IV NR (21:00)
[2018-05-24] MEDS ORDERED: SODIUM CHLORIDE 0.9% 1000ML 1,000 ML IV ONE (21:00)
[2018-05-24] MEDS ORDERED: PANTOPRAZOLE 40 MG 10ML VIAL IV STA (21:03)
[2018-05-24] MEDS ORDERED: DIATRIZOATE MEGL/DIATRIZOA SOD 30 ML BTL PO ONE (21:11)
[2018-05-24 21:31] LABS: BASOPHILS % 0.2 % (0.0-1.0); EOSINOPHILS # (AUTO) 0.1 (0.0-0.4); EOSINOPHILS % 0.5 % (0.0-6.0); HEMATOCRIT 33.4 % (34.2-44.1); HEMOGLOBIN 10.9 g/dL (12.0-16.0); LYMPHOCYTES # (AUTO) 1.6 (1.0-3.2); LYMPHOCYTES % 15.4 % (18.0-39.1); MEAN CORPUSCULAR HEMOGLOBIN 28.8 pg (28-32); MEAN CORPUSCULAR HGB CONC 32.6 g/dL (31-35); MEAN CORPUSCULAR VOLUME 88.1 fL (81-99); MONOCYTES # (AUTO) 0.6 (0.2-0.8); MONOCYTES % 5.8 % (4.4-11.3); NEUTROPHILS # (AUTO) 7.8 (2.1-6.9); NEUTROPHILS % 76.9 % (38.7-80.0); PLATELET COUNT 130 x10e3/uL (140-360); RED BLOOD COUNT 3.79 x10e6/uL (3.6-5.1); RED CELL DISTRIBUTION WIDTH 17.3 % (11.7-14.4)
[2018-05-24 21:50] LABS: ALBUMIN 2.5 g/dL (3.5-5.0); ALBUMIN/GLOBULIN RATIO 0.6 (0.8-2.0); ANION GAP 14.9 mmol/L (8-16); CALCIUM 9.3 mg/dL (8.4-10.2); CREATININE, SERUM 1.17 mg/dL (0.57-1.11); POTASSIUM 3.9 mmol/L (3.5-5.1)
[2018-05-24 21:59] LABS: CREATINE KINASE MB 1.8 ng/mL (0-5.0)
[2018-05-24] MEDS ORDERED: IOPAMIDOL 370 MG/ML 200 ML INFUS..BTL INJ ONE (22:28)
[2018-05-24] MEDS ORDERED: SODIUM CHLORIDE 0.9% 50ML 50 ML ONE (22:28)
[2018-05-24 22:36] LABS: CLARITY,URINE CLOUDY (CLEAR); COLOR,URINE YELLOW (YELLOW)
[2018-05-24 22:37] LABS: BILIRUBIN,URINE NEGATIVE (NEGATIVE); KETONES,URINE NEGATIVE (NEGATIVE); LEUKOCYTE ESTERASE ,URINE NEGATIVE (NEGATIVE); NITRITE,URINE NEGATIVE (NEGATIVE); PROTEIN,URINE DIPSTICK 3+ (NEGATIVE); URINE UROBILINOGEN 0.2 mg/dL (0.2 - 1)
[2018-05-24] MEDS ORDERED: ASPIRIN 81 MG CHEW TAB PO STA (22:39)
--- NOTE | 2018-05-24 22:45 | Diagnostic Imaging Report ---
EXAM: CT ABDOMEN/PELVIS W DATE: 05/24/2018 8:58 PM INDICATION: Abdominal pain, vomiting COMPARISON: 11/17/2017 TECHNIQUE: The abdomen and pelvis were scanned using a multidetector helical scanner. Coronal and sagittal reformations were obtained. CT low dose techniques were utilized, as applicable. IV Contrast: 100 ml Isovue 300/370 FINDINGS: Evaluation is degraded by noise. LOWER THORAX: No consolidations LIVER/BILIARY: Ill-defined hypodense right liver lesion on image 19 measuring 1.4 cm. Several new subcentimeter hypodense liver lesions, for example in the central liver on image 20 measuring 6 mm, hepatic dome on image 10 measuring 9 mm and left liver on images 19, 18. No ductal dilatation. GALLBLADDER: Postsurgical changes status post cholecystectomy. Narrowing of the common hepatic duct/common bile duct were by tumor. SPLEEN: Not enlarged. Multifocal scarring. PANCREAS: Unremarkable ADRENALS: No nodules KIDNEYS: No suspicious renal masses. No hydronephrosis. GI TRACT: Stable gastric antral/pyloric wall thickening suggesting gastritis. VESSELS: Severe atherosclerotic changes. PERITONEUM/RETROPERITONEUM: Increased right lateral peritoneal soft tissue implant measuring 1.6 cm, prior 0.9 cm. Mild peritoneal thickening and trace perihepatic fluid. LYMPH NODES: New extensive retroperitoneal and pelvic adenopathy, for example 1.9 cm left periaortic node and 2 cm short axis right external iliac node.. New ill-defined darcy hepatis mass measuring 3.1 x 2.6 cm causing narrowing of the main portal vein. REPRODUCTIVE ORGANS/BLADDER: Unremarkable SOFT TISSUES: Bilateral fat-containing inguinal hernias. BONES: No suspicious bone lesions. IMPRESSION: 1. Widespread metastatic disease including multiple new liver metastases, abdominal and pelvic adenopathy, and enlarging peritoneal soft tissue nodule. 2. Likely gastritis involving the gastric antrum/hilar region. Signed by: Dr Vero Garcia MD on 05/24/2018 10:42 PM
[2018-05-24 22:47] LABS: BACTERIA,URINE MANY /HPF; RBC,URINE 21-50 /HPF (0-5); WBC,URINE (MAN) 21-50 /HPF (0-5)
[2018-05-24 22:48] LABS: EPITHELIAL CELLS,URINE FEW /LPF; TRANSITIONAL EPI CELLS,URINE FEW
[2018-05-24] MEDS ORDERED: MORPHINE SULFATE 2 MG/ML SYR IV STA (22:49)
[2018-05-24] MEDS ORDERED: ONDANSETRON HCL INJ 2 MG/ML VIAL IV STA (22:49)
[2018-05-24] MEDS ORDERED: MORPHINE SULFATE 2 MG/ML SYR IV PRN (23:15)
[2018-05-24] MEDS ORDERED: ONDANSETRON HCL INJ 2 MG/ML VIAL IV PRN (23:15)
[2018-05-24] MEDS ORDERED: SODIUM CHLORIDE FLUSH 10 ML SYR INJ PRN (23:15)
[2018-05-24] MEDS ORDERED: LEVOTHYROXINE88 MCG PO (23:21)
[2018-05-24] MEDS ORDERED: TYLENOL # 31 EA PO (23:21)
[2018-05-24] MEDS ORDERED: NITROFURANTOIN50 MG PO (23:21)
[2018-05-24] MEDS ORDERED: VESICARE5 MG PO (23:21)
[2018-05-25] VITALS (10 sets, daily range): BP systolic 139–169; BP diastolic 60–71
[2018-05-25] MEDS ORDERED: FERROUS SULFAT325 MG PO (00:07)
[2018-05-25] MEDS ORDERED: FOLIC ACID1 MG PO (00:07)
[2018-05-25] MEDS ORDERED: MEGESTROL400 MG/10 PO (00:07)
[2018-05-25] MEDS: CEFTRIAXONE SOD 1 GM VIAL IV SCH ×2 (00:15→22:30)
[2018-05-25] MEDS: LEVOTHYROXINE SODIUM 88 MCG TAB PO SCH (05:14)
[2018-05-25 05:32] LABS: BASOPHILS % 0.3 % (0.0-1.0); EOSINOPHILS % 0.5 % (0.0-6.0); HEMOGLOBIN 8.6 g/dL (12.0-16.0); LYMPHOCYTES # (AUTO) 1.6 (1.0-3.2); LYMPHOCYTES % 18.3 % (18.0-39.1); MEAN CORPUSCULAR HEMOGLOBIN 28.5 pg (28-32); MEAN CORPUSCULAR HGB CONC 31.9 g/dL (31-35); MEAN CORPUSCULAR VOLUME 89.4 fL (81-99); MONOCYTES # (AUTO) 0.6 (0.2-0.8); MONOCYTES % 7.3 % (4.4-11.3); NEUTROPHILS # (AUTO) 6.2 (2.1-6.9); NEUTROPHILS % 72.2 % (38.7-80.0); PLATELET COUNT 104 x10e3/uL (140-360); RED BLOOD COUNT 3.02 x10e6/uL (3.6-5.1); RED CELL DISTRIBUTION WIDTH 17.3 % (11.7-14.4)
[2018-05-25 06:08] LABS: CREATINE KINASE MB 1.3 ng/mL (0-5.0)
[2018-05-25 06:28] LABS: ALBUMIN/GLOBULIN RATIO 0.6 (0.8-2.0); ANION GAP 11.2 mmol/L (8-16); CALCIUM 8.3 mg/dL (8.4-10.2); CREATININE, SERUM 1.03 mg/dL (0.57-1.11); POTASSIUM 4.2 mmol/L (3.5-5.1)
[2018-05-25] MEDS ORDERED: ASPIRIN 81 MG CHEW TAB PO SCH (09:00)
[2018-05-25] MEDS ORDERED: PANTOPRAZOLE 40 MG 10ML VIAL IV SCH (09:00)
[2018-05-25] MEDS ORDERED: MEGACE 400MG/ 10ML CUP PO SCH (09:00)
[2018-05-25] MEDS: LOSARTAN POTASSIUM 100 MG TAB PO SCH (09:45)
[2018-05-25] MEDS: FOLIC ACID 1 MG TAB PO SCH (09:45)
[2018-05-25] MEDS: SOLIFENACIN SUCCINATE 5 MG TAB PO SCH (09:45)
[2018-05-25] MEDS: FERROUS SULFATE 325 MG TAB PO SCH (09:45)
--- NOTE | 2018-05-25 09:47 | History and Physical ---
CHIEF COMPLAINT: Abdominal pain, nausea and vomiting. HISTORY: Patient is a 73-year-old female with a history of gallbladder cancer. Stopped treatment per patient. Has a history of cholecystectomy. Came in with abdominal pain, nausea and vomiting. The patient's CT scan showed that she has multiple liver lesions consistent with metastasis disease. Other workup including laboratory showed that the patient is anemic. She has elevated troponin of 0.5, and she also had 2+ blood in the urine along with a urinary tract infection. The patient was placed on antibiotics and admitted to the hospital for further evaluation. PAST MEDICAL HISTORY: Gallbladder cancer per patient, recurrent urinary tract infection, hypothyroidism, hypertension, osteoarthritis, and progressive weight loss. PAST SURGICAL HISTORY: Cholecystectomy. SOCIAL HISTORY: Patient does not smoke or use alcohol. No recreational drugs. ALLERGIES: NO KNOWN ALLERGIES. MEDICATIONS: List is reviewed. REVIEW OF SYSTEMS: Abdominal pain, nausea, vomiting, and urinary tract infection. PHYSICAL EXAMINATION VITAL SIGNS: Temperature is 98, blood pressure 169/71, pulse rate 84, respirations 22. GENERAL: The patient is not in acute distress. She is awake. HEENT: Normocephalic, atraumatic and anicteric. NECK: Supple grossly. PULMONARY: Diminished breath sounds bilaterally. CARDIOVASCULAR: Regular rate and rhythm. ABDOMEN: Soft and tenderness. Some guarding but no rebound tenderness. EXTREMITIES: No gross cyanosis or edema. NEUROLOGIC: No focal deficit. LABORATORY: Sodium is 133, potassium 4.2, chloride 105, bicarb 21, BUN 34, creatinine 1, and glucose is 105. WBC is 8.6, hemoglobin 8.6, hematocrit 27, and platelets is 104,000. IMPRESSION 1. Abdominal pain associated with metastasis with multiple liver lesions: Patient has gallbladder cancer. She had a cholecystectomy. Per the patient, not having any further treatment for her gallbladder cancer. 2. Urinary tract infection. PLAN: Consultation with Dr. Banda and GI. Patient may need liver biopsy pending on further evaluation. Antibiotics. Home medications. Pain control. The patient will be admitted. Job#: [id number] [place]
[2018-05-25 13:22] LABS: CREATINE KINASE MB 1.3 ng/mL (0-5.0)
[2018-05-25] MEDS ORDERED: MORPHINE SULFATE INJ 4 MG/ML INJ IV PRN (13:30)
[2018-05-25] MEDS: SODIUM CHLORIDE 0.9% 1000ML 1,000 ML IV SCH (22:30)
[2018-05-25] MEDS: HYDROCODONE/APAP 5MG-325MG TAB PO PRN (22:30)
[2018-05-26] VITALS: BP 152/70
[2018-05-26 04:00] VITALS: BP 151/68
[2018-05-26] MEDS: LEVOTHYROXINE SODIUM 88 MCG TAB PO SCH (05:16)
[2018-05-26] MEDS ORDERED: FENTANYL CITRATE/PF 100MCG/2 ML INJ ONE (08:55)
[2018-05-26 09:06] VITALS: BP 149/67
[2018-05-26] MEDS: PANTOPRAZOLE SOD 40 MG TABEC PO SCH (09:48)
[2018-05-26] MEDS: LOSARTAN POTASSIUM 100 MG TAB PO SCH (09:48)
[2018-05-26] MEDS: DRONABINOL 2.5MG PO SCH ×2 (09:48→16:30)
[2018-05-26] MEDS: FERROUS SULFATE 325 MG TAB PO SCH (09:49)
[2018-05-26] MEDS: FOLIC ACID 1 MG TAB PO SCH (09:49)
[2018-05-26] MEDS: SOLIFENACIN SUCCINATE 5 MG TAB PO SCH (09:49)
[2018-05-26] MEDS: SENNA-S TABLET PO SCH ×2 (09:49→17:00)
[2018-05-26 11:54] VITALS: BP 138/62
--- NOTE | 2018-05-26 16:09 | Consultation ---
DATE OF CONSULTATION: May 26, 2018 REASON FOR CONSULTATION: Elevated troponin and chest pain. CONSULTING PHYSICIAN: Dr. Justin Reyez. HISTORY OF PRESENT ILLNESS: This is a frail, 73-year-old female who presented with abdominal pain. According to the patient and daughter at the bedside, she was having severe abdominal pain accompanied with vomiting, and she presented to the emergency room for evaluation. She had a CT of the abdomen done that showed metastasis with multiple liver lesions. She was recently diagnosed with gallbladder cancer and underwent a partial cholecystectomy, and was recovering slowly. She also has a history of anemia with multiple blood transfusions in the past. She denied any palpitations, any shortness of breath, any diaphoresis, any headache or palpitation. Troponin was slightly elevated and EKG showed normal sinus rhythm with no ST abnormalities. PAST MEDICAL HISTORY: Gallbladder cancer, hypertension, hypothyroidism, anemia of chronic disease, stroke, COPD, osteoarthritis, hyperlipidemia, syncope and fall. PAST SURGICAL HISTORY: Cholecystectomy. FAMILY HISTORY: Positive for hypertension. SOCIAL HISTORY: No smoking, no drinking. She lives at home with family. MEDICATIONS: See med list. ALLERGIES: SHE IS NOT ALLERGIC TO ANY MEDICATIONS. REVIEW OF SYSTEMS: Negative except as mentioned above. PHYSICAL EXAMINATION VITAL SIGNS: Temperature 98, heart rate 95, blood pressure 138/62, respirations 16, oxygen saturation 96% on room air. GENERAL: She is awake, alert and oriented x3, but very frail and lethargic. HEENT: Mucous membrane moist. NECK: Supple. LUNGS: Bilateral with decreased breath sounds. CARDIOVASCULAR: S1 and S2 present. ABDOMEN: Soft and distended. NEUROLOGIC: Intact. EXTREMITIES: Bilateral lower with +1 edema. LABORATORY DATA: Sodium 133, potassium 4.2, chloride 105, CO2 of 21, BUN 34, creatinine 1.03, glucose 105, white blood cells 8.59, hemoglobin 8.6, hematocrit 27.0, platelets 104,000. IMPRESSION 1. Elevated troponin. 2. Hyponatremia. 3. Anemia. 4. Gallbladder cancer with metastasis. 5. Hypertension. 6. Thrombocytopenia. 7. Urinary tract infection. ASSESSMENT AND PLAN: 1. She is planning on echocardiogram to assess the LV and the valve function. 2. She had a CT of the abdomen that showed gallbladder cancer with metastasis to the liver. 3. She is anemic with low hemoglobin and low platelets, so we will go ahead and hold off on any cardiac intervention for now. Will continue medical management. 4. Further cardiac workup pending clinical course. Thank you for this consultation. Dictated by Daisy You NP Job#: [id number]
[2018-05-26] MEDS ORDERED: POLYETHYLENE GLYCOL 3350 17 GM PACK PO PRN (16:15)
[2018-05-26 16:45] VITALS: BP 143/63
[2018-05-26] MEDS: SODIUM CHLORIDE 0.9% 1000ML 1,000 ML IV SCH (19:45)
[2018-05-26 20:00] VITALS: BP 155/69
[2018-05-26] MEDS: CEFTRIAXONE SOD 1 GM VIAL IV SCH (23:32)
[2018-05-27] VITALS (8 sets, daily range): BP systolic 153–181; BP diastolic 67–81
[2018-05-27] MEDS: LEVOTHYROXINE SODIUM 88 MCG TAB PO SCH (06:13)
[2018-05-27] MEDS: DRONABINOL 2.5MG PO SCH ×2 (08:25→17:06)
[2018-05-27] MEDS: PANTOPRAZOLE SOD 40 MG TABEC PO SCH (08:25)
[2018-05-27] MEDS: FOLIC ACID 1 MG TAB PO SCH (08:53)
[2018-05-27] MEDS: FERROUS SULFATE 325 MG TAB PO SCH (08:53)
[2018-05-27] MEDS: SENNA-S TABLET PO SCH ×2 (08:53→17:06)
[2018-05-27] MEDS: SOLIFENACIN SUCCINATE 5 MG TAB PO SCH (08:53)
[2018-05-27] MEDS: LOSARTAN POTASSIUM 100 MG TAB PO SCH (08:53)
[2018-05-27] MEDS: METOPROLOL TARTRATE 25 MG TAB PO SCH ×2 (09:34→17:06)
[2018-05-27] MEDS: HYDROCODONE/APAP 5MG-325MG TAB PO PRN (18:39)
[2018-05-27] MEDS: SODIUM CHLORIDE 0.9% 1000ML 1,000 ML IV SCH (22:18)
[2018-05-27] MEDS: CEFTRIAXONE SOD 1 GM VIAL IV SCH (23:18)
[2018-05-28] VITALS: BP 162/71
[2018-05-28 04:00] VITALS: BP 176/78
[2018-05-28] MEDS: LEVOTHYROXINE SODIUM 88 MCG TAB PO SCH (05:36)
[2018-05-28 07:30] VITALS: BP 174/74
[2018-05-28] MEDS: DRONABINOL 2.5MG PO SCH ×2 (08:20→17:03)
[2018-05-28] MEDS: PANTOPRAZOLE SOD 40 MG TABEC PO SCH (08:20)
[2018-05-28] MEDS: SENNA-S TABLET PO SCH ×2 (08:21→17:03)
[2018-05-28] MEDS: FOLIC ACID 1 MG TAB PO SCH (08:21)
[2018-05-28] MEDS: FERROUS SULFATE 325 MG TAB PO SCH (08:21)
[2018-05-28] MEDS: SOLIFENACIN SUCCINATE 5 MG TAB PO SCH (08:21)
[2018-05-28] MEDS: LOSARTAN POTASSIUM 100 MG TAB PO SCH (08:29)
[2018-05-28] MEDS: METOPROLOL TARTRATE 25 MG TAB PO SCH ×2 (08:29→17:03)
[2018-05-28 09:00] VITALS: BP 174/74
[2018-05-28 12:00] VITALS: BP 166/72
[2018-05-28 16:12] VITALS: BP 164/72
--- NOTE | 2018-05-29 09:56 | Discharge Summary ---
PRIMARY CARE PHYSICIAN: Dr. Stuart Smith PRESIDENT AND CHIEF EXECUTIVE OFFICER: Dr. Ronnie Sharp FINAL DIAGNOSES: 1. Unstable angina. No intervention or further workup due to the patient's advanced cancer. 2. Gallbladder cancer with liver metastasis. 3. Moderate to severe generalized abdominal pain secondary to metastasis. SUMMARY: This is a 73-year-old female with gallbladder cancer, with liver metastasis and peritoneal metastasis as well. The patient is in advanced stage. Treatment has stopped and comfort measures, palliative care recommended by her transit mix operator. Patient's pain controlled with pain medication. She is progressively declining. The patient also has increasing troponin I as well. Consultation with Dr. Sharp recommended medical management with palliative control of pain. Patient was seen by [facility]. The patient arrangement has been made. Durable medical equipment including the supportive equipment sent to the house including hospital bed along with commode, etc. The patient is stable. Pain control needed at home. Patient was discharged home with [facility]. Job#: [id number]
== END 2018-05-28 18:24 | disposition hospice, home (50) | DRG 690 ==
LOC: ER 20:25 → ERHOLD 23:22 → MED/SURG 05-25 00:51 → OBSVTOIN 05-25 09:14
PROVIDERS: ADMIT Internal Medicine; ATTEND Internal Medicine
DX: N39.0 Urinary tract infection, site not specified (principal); I25.110 Atherosclerotic heart disease of native coronary artery with unstable angina pectoris; C24.8 Malignant neoplasm of overlapping sites of biliary tract; I20.0 Unstable angina; C78.7 Secondary malignant neoplasm of liver and intrahepatic bile duct; E87.1 Hypo-osmolality and hyponatremia; C78.6 Secondary malignant neoplasm of retroperitoneum and peritoneum; G89.3 Neoplasm related pain (acute) (chronic); Z51.5 Encounter for palliative care; I10 Essential (primary) hypertension; D69.6 Thrombocytopenia, unspecified; R74.9 Abnormal serum enzyme level, unspecified; E03.9 Hypothyroidism, unspecified; K29.70 Gastritis, unspecified, without bleeding; M25.50 Pain in unspecified joint; R63.4 Abnormal weight loss; Z68.21 Body mass index [BMI] 21.0-21.9, adult; K59.00 Constipation, unspecified; J44.9 Chronic obstructive pulmonary disease, unspecified; D63.8 Anemia in other chronic diseases classified elsewhere
CPT/HCPCS: 36415; 74177; 80053; 81001; 82150; 82550; 82553; 83690; 84484; 85025; 87086; 93005; 93306; 99284; G0378; J0696; J2270; J2405; J7030; Q9967